=== PATIENT | male | born 1945 | race Caucasian/White ===

== ENCOUNTER 2016-11-20 23:15 | Inpatient (IN) | payer MEDICARE ==
[~2016-11-20] VITALS: Ht 165.1 cm; Wt 102.6 kg
[~2016-11-20 23:15] MED LIST: LIDO700A6 TP
--- NOTE | 2016-11-20 23:25 | ED.REPORT ---
HPI-General Illness Date of Service Nov 20, 2016 ED Provider: Shaun Manuel MD A 70 year old male with a history of CAD, hypertension and diabetes mellitus presents to the ED via EMS after a reported syncopal episode that occurred just prior to arrival. Patient admits drinking EtOH prior to the incident. The episode was reportedly witnessed by the patient's . Patient has no memory of a syncopal episode. He currently takes Aspirin, but no other anticoagulant.. Patient denies extremity numbness or weakness, head injury, neck soreness, or any other current pains. He is not a reliable historian. Nursing Notes Stated Complaint: SYNCOPE/ETOH Nursing Notes Reviewed: Yes Allergies: Coded Allergies: No Known Allergies (Unverified , 09/06/16) Scheduled Ascorbic Acid (Vitamin C) 1,000 Mg Tab.chew 1,000 MG PO DAILY Atorvastatin (Lipitor) 10 Mg Tab 10 MG PO DAILY Folic Acid (Folic Acid) 1 Mg Tablet 1 MG PO DAILY Furosemide (Furosemide) 20 Mg Tab 20 MG PO DAILY Glipizide (Glipizide) 10 Mg Tablet 10 MG PO DAILY Hydrochlorothiazide (Hydrochlorothiazide) 25 Mg Tablet 25 MG PO DAILY Lidocaine (Lidoderm) 700 Mg Adh..patch 1 PATCH TP UD Metformin (Glucophage) 1,000 Mg Tablet 1,000 MG PO BID Metoprolol Tartrate (Metoprolol Tartrate) 50 Mg Tablet 50 MG PO BID Multivitamin (Multi Vitamin Daily) 1 Each Tablet 1 EACH PO DAILY Omeprazole (Omeprazole) 20 Mg Capsule.dr 20 MG PO DAILY Miscellaneous Medications Aspirin (Aspirin) 325 Mg Tablet 325 MG PO Losartan Potassium (Losartan Potassium) 100 Mg Tablet 100 MG PO General Time Seen by MD: 23:23 Chief Complaint Other (Syncope ) Hx Obtained From: Patient Arrived By: Ambulance Sudden in Onset?: Yes Onset Occurred: Just prior to arrival Context of Onset: EtOH use Symptom Duration: 1 - 15 minutes Location: No: Head, Neck Associated with: Reports: Syncope, Denies: Headache, Numb extremities, Weak extremity Additional Notes: Pertinent Negative: Pt denies other symptoms Recent Healthcare: No recent doctor visit, No recent hospitalization Past Medical History Past Medical History Reports: previous [place] Reports: Coronary artery disease, Diabetes mellitus, Hypertension Past Surgical History Stents x3 Smoking History Unknown if Ever Smoker Social History Drug Use: Denies drug use Other Social History: , Local resident Ambulatory Status Independent Review of Systems Pt has no memory of the reported syncopal episode Full Review of Systems Constitutional: Denies: Chills, Fever Respiratory: Denies: Shortness of breath Cardiovascular: Denies: Chest pain GI: Denies: Abdominal pain, Nausea, Vomiting Musculoskeletal: Denies: Extremity pain, Neck pain Neurologic: Reports: Change LOC, Syncope, Denies: Numbness, Weakness Complete sys rev & neg: except as marked. Physical Exam Vital Signs Vital Signs Date Time Temp Pulse Resp B/P Pulse Ox O2 Delivery O2 Flow Rate FiO2 11/21/16 01:01 123 140/85 11/21/16 01:01 126 130/106 11/21/16 01:00 105 18 150/81 97 Room Air 11/20/16 23:28 36.6 106 18 151/76 96 Room Air Initial VS: Reviewed Extremities: Vascular intact, Neuro intact, No swelling, No tenderness Skin: Warm, Dry, No cyanosis Psychiatric: Mood/affect normal, Behavior normal, Normal thought content General/Constitutional: Awake, Alert Appearance / Presentation: Positive: Intoxicated (Stong Smell of EtOH ), Obese Head / Eyes: Atraumatic, Normocephalic, PERRL Eye Movement: Positive: Nystagmus present (Mild) Neck: Atraumatic, Supple, Non-tender Respiratory / Chest: Atraumatic, Breath sounds NL, Breath sounds = bilat Cardiovascular: Heart rate NL, Regular rhythm, Heart sounds NL Abdomen: Atraumatic, Soft, Non-tender ABDOMEN: Obese Interpretation & Diagnostics Lab Results Interpretation Result Diagram: 11/21/16 0504 11/21/16 0504 Test 11/20/16 23:30 Prothrombin Time 10.9sec (8.1-12.5) Prothromb Time International Ratio 1.02ratio Activated Partial Thromboplast Time 27.3sec (22.8-33.0) Total Bilirubin 0.4mg/dL (0.0-1.2) Aspartate Amino Transf (AST/SGOT) 43U/L (0-50) Alanine Aminotransferase (ALT/SGPT) 34U/L (0-44) Alkaline Phosphatase 107U/L (25-160) Pro-B-Type Natriuretic Peptide 288.4pg/mL (0-376) Total Protein 6.9g/dL (6.4-8.4) Albumin 4.1g/dL (3.4-5.0) Alcohol, Quantitative 278mg/dL (0-10) ECG Interpretation ECG Interpretation: Sinus tachycadia Rate 103 Time: 00:21 Interpreted by: ED physician X-Ray Chest Interpretation Chest Xray Interpretation: IMPRESSION: Lordotic film Azygos vein Elevated right hemidiaphragm (no change from previous) No other acute abnormalities identified Interpretation / Wet Read by: Wet read ED physician CT Head Interpretation IMPRESSION Mild atrophy and periventricular white matter changes consistent with patient's age No evidence of hemorrhage or specific acutr abnormality Study: Head CT no contrast Interpretation / Wet Read by: Interpret - Radiologist (hi) Re-Eval/Medical Decision Med Decision/Clinical Course 70-year-old with syncopal episode in the setting of significant alcohol intoxication, and apparent chronic alcohol abuse. He has an unexpected finding of a troponin which is four times the upper limit of normal. His EKG had some lateral ST sagging and changes suggestive of ischemia, which is now resolved. He is admitted for completion of rule out rule out protocol and anticipate performance evaluation prior to discharge. I would anticipate alcohol withdrawal here and CIWA protocol initiated. Time of Eval: 00:29 Patient Status: Condition improved Re-Evaluation/Progress Note: Patient is rechecked. He is informed of his lab results, X-ray results and diagnosis. All questions are addressed. Patient understands and agrees with treatment plan to admit. Consultation : Referral / Consult Name: Liz Caballero DO Consulted With: Hospitalist Call Returned at: 01:13 Java Analyst: Will see patient, Agrees with eval, Agrees with plan, Accepts admit Counseled Regarding: Diagnosis, Lab results, Need for admission Discharge & Departure Primary Impression: Syncope Syncope type: unspecified Qualified Code: R55 - Syncope and collapse Additional Impressions: Elevated troponin Alcohol intoxication Complication of substance-induced condition: with unspecified complication Qualified Code: F10.129 - Alcohol abuse with intoxication, unspecified Disposition: ADMITTED TO HOSPITAL Discharge Condition All VS Reviewed: Yes Condition: Stable Referrals: Ethan Hein MD (PCP) Scribe Attestation Portions of this note were transcribed by Mikel Wylie. I, Dr. Manuel personally performed the history, physical exam and medical decision-making; I reviewed and confirmed the accuracy of the information in the transcribed note. Signed by: Oliver Morales, 11/21/16 0100. Attending Statement As attending of record for this patient, I conducted an independent history and physical examination, and concur with the resident documentation as detailed above, and as amended. copies to: Ethan Hein MD, Christopher W MD Nov 20, 2016 23:25 MIKEL WYLIE Nov 20, 2016 23:36 No other acute abnormalities identified Interpretation / Wet Read by: Wet read ED physician CT Head Interpretation IMPRESSION Mild atrophy and periventricular white matter changes consistent with patient's age No evidence of hemorrhage or specific acutr abnormality Study: Head CT no contrast Interpretation / Wet Read by: Interpret - Radiologist (hi) Re-Eval/Medical Decision Time of Eval: 00:29 Patient Status: Condition improved Re-Evaluation/Progress Note: Patient is rechecked. He is informed of his lab results, X-ray results and diagnosis. All questions are addressed. Patient understands and agrees with treatment plan to admit. Consultation : Referral / Consult Name: Liz Caballero DO Consulted With: Hospitalist Call Returned at: 01:13 Java Analyst: Will see patient, Agrees with eval, Agrees with plan, Accepts admit Counseled Regarding: Diagnosis, Lab results, Need for admission Discharge & Departure Primary Impression: Syncope Syncope type: unspecified Qualified Code: R55 - Syncope and collapse Additional Impressions: Elevated troponin Alcohol intoxication Complication of substance-induced condition: with unspecified complication Qualified Code: F10.129 - Alcohol abuse with intoxication, unspecified Disposition: ADMITTED TO HOSPITAL Discharge Condition All VS Reviewed: Yes Condition: Stable Referrals: Ethan Hein MD (PCP) Jeannieibana Attestation Portions of this note were transcribed by Mikel Wylie. I, Dr. Manuel personally performed the history, physical exam and medical decision-making; I reviewed and confirmed the accuracy of the information in the transcribed note. Signed by: Oliver Morales, 11/21/160. copies to: Ethan Hein MD, Christopher W MD Nov 20, 2016 23:25 MIKEL WYLIE Nov 20, 2016 23:36
[2016-11-20 23:28] VITALS: BP 151/76; PULSE 106; RESP 18; O2SAT 96
[2016-11-20] MEDS ORDERED: 0.9% Sodium Chloride 1,000 ML IV ONE (23:29)
[2016-11-20 23:42] LABS: BASOPHILS % (AUTO) 0.4 % (0-3); EOSINOPHILS % (AUTO) 3.1 % (0-5); MONOCYTES % (AUTO) 8.5 % (4-12); Mean Corpuscular Hemoglobin 33.2 pg (27.0-35.0); NEUTROPHILS % (AUTO) 51.5 % (40-74); Platelet Count 142 bil/L (150-400)
[2016-11-21] VITALS (12 sets, daily range): BP systolic 130–166; BP diastolic 61–106; PULSE 79–126; RESP 16–22; O2SAT 94–98
[2016-11-21 00:02] LABS: INR 1.02 ratio
[2016-11-21 00:19] LABS: Magnesium 1.3 mg/dL (1.6-2.6)
[2016-11-21 00:21] LABS: TROPONIN T 0.041 ug/L (0.0-0.011)
[2016-11-21] MEDS ORDERED: Heparin 25K Unit/500mL 0.45 NS 25,000 UNIT in IV Premix 1 EACH IV SCH (00:30)
[2016-11-21] MEDS ORDERED: Heparin 5,000 Unit/mL Inj IVPUSH ONE (00:30)
[2016-11-21] MEDS ORDERED: Pantoprazole 4 mg/mL 10 mL Inj IVPUSH ONE (00:30)
[2016-11-21] MEDS: MeTOProlol 1 mg/mL 5 mL Inj IVPUSH SCH ×3 (01:13→02:10)
[2016-11-21] MEDS ORDERED: Multivitamin w/Vit K Inj 10 ML, Thiamine Inj 100 MG, Folic Acid Inj 1 MG, Magnesium Sul... IV ONE ×5 (01:25)
[2016-11-21] MEDS ORDERED: Potassium Chloride 20 mEq SR Tablet PO ONE (01:25)
[2016-11-21] MEDS ORDERED: 0.9% Sodium Chloride 1,000 ML IV SCH (01:43)
[2016-11-21] MEDS ORDERED: Polyethylene Glycol (PEG) 17 Gm Powder PO PRN (01:45)
[2016-11-21] MEDS ORDERED: Alum-Mag Hydrox-Simeth 30 mL Suspension PO PRN (01:45)
[2016-11-21] MEDS ORDERED: Ondansetron 2 mg/mL 2 mL Inj IVPUSH PRN (01:45)
[2016-11-21] MEDS ORDERED: Senna-Docusate 8.6-50 mg Tablet PO PRN (01:45)
[2016-11-21] MEDS ORDERED: OMEP20CA11 PO (01:52)
[2016-11-21] MEDS ORDERED: METO50TA3 PO (01:52)
[2016-11-21] MEDS ORDERED: GLIP10TA10 PO (01:52)
[2016-11-21] MEDS ORDERED: FUR20 PO (01:52)
[2016-11-21] MEDS ORDERED: METF1000 PO (01:52)
[2016-11-21] MEDS ORDERED: ASPI325T32 PO (01:52)
[2016-11-21] MEDS ORDERED: MULT-1018 PO (01:52)
[2016-11-21] MEDS ORDERED: FOLI1TAB18 PO (01:52)
[2016-11-21] MEDS ORDERED: ASCO100089 PO (01:52)
[2016-11-21] MEDS ORDERED: LOSA100T29 PO (01:52)
[2016-11-21] MEDS ORDERED: HYDR25TA4 PO (01:52)
[2016-11-21] MEDS ORDERED: ATRV10T PO (01:52)
[2016-11-21] MEDS ORDERED: Thiamine Inj 100 MG in 0.9% Sodium Chloride 100 ML IV SCH (02:40)
[2016-11-21] MEDS ORDERED: Mag Sulf 4 Gm/100 mL IV Premix (Mag < 1.6 & Creat < 2) IV ONE (03:05)
--- NOTE | 2016-11-21 03:42 | PCM.HPMED ---
Subjective Date of Service Nov 21, 2016 Primary Provider: Admitting Physician: Liz Caballero DO Primary Care Physician: Ethan Hein MD Attending Physician: Liz Caballero DO Admit Status: From the Emergency Department, [facility] Telemetry Chief Complaint: Syncope History of Present Illness: Patient is a 70 year old male with a history of CAD, hypertension and diabetes mellitus presents to the ED via EMS after a reported syncopal episode that occurred just prior to arrival. Patient admits drinking more EtOH than usual prior to the incident. Patient's heard him fall, and found him on the floor without any surroundings of things to hit. Patient has no memory of a syncopal episode. Denies sense of lightheadedness, SOB or nausea prior to fall. Patient denies headaches, vision changes, extremity numbness or weakness, head injury, neck soreness, or any other current pains. In the ED, vitals T36.6, P106, RR18, BP151/76, 96% on RA. Labs significant for troponin 0.041. Heparin ggt started and patient admitted for further work up. Review of Systems: 11 point ROS reviewed and negative otherwise noted on HPI. Allergies Coded Allergies: No Known Allergies (Unverified , 09/06/16) Home Medications Atorvastatin 10mg daily Glipizide 10mg TID Metformin 1000mg BID Vit C 1000IU Mature Multi Vit daily Losartan 100mg daiyl HCTZ 25mg daily Metoprolol 50mg BID Omeprazole 20mg daiyl ASA 325mg daily Aller-jada 10mg daily Furosemide 20mg daily Folic acid 1mg daily per 's list PMH DM2 CAD with stents HTN Obesity Surgical History R rotator cuff surgery Cervical spine surgery Family History Mother with heart issues Social History Hx Alcohol Use: Yes Alcoholic Drinks Per Day: 3-4 whiskey / day Hx Substance Use: No Hx Tobacco Use: Yes Smoking Status: Former Smoker (30 pack years) Living Arrangement: with Family (with in [place]) Exam Vital Signs Vital Sign - Last Date Time Temp Pulse Resp B/P Pulse Ox O2 Delivery O2 Flow Rate FiO2 11/21/16 02:09 36.8 90 20 141/61 94 Room Air Intake and Output 11/20/16 11/20/16 11/21/16 Cumulative From/Thru 15:00 23:00 07:00 11/20/16 23:28 - 11/20/16 23:47 Intake Total 1000 ml 1000 ml Balance 1000 ml 1000 ml Intake IV Total 1000 ml 1000 ml Exam GEN: Alert and oriented, obese male with flushed face, breath smells of alcohol HEENT: NC/AT, PERRL, EOMI, sclera anicteric, moist mucous membranes Neck:Supple with full ROM, no bruits CV: RRR, normal S1, S2, no murmurs, rubs or gallops, normal peripheral pulses Lungs: CTAB ABD: Soft, obese, mildly distended, non-tender, no fluid waves Ext: no edema, cyanosis or clubbing, good cap refill Skin: Warm, dry and intact Neuro: no focal deficits Psych: normal mood and affect Lab and Diagnostics Result Diagram: 11/20/16232911/20/162329 Assessment & Plan Patient is a 70 year old male with a history of CAD, hypertension and diabetes mellitus presents to the ED via EMS after a reported syncopal episode that occurred just prior to arrival. Patient was admitted for elevated troponin. Syncope, present on admission. Acute. - Ddx: VT, TIA/CVA, arrhythmia, aortic stenosis, hypoglycemia, autonomic insufficiency secondary to diabetes, orthostatic hypotension - CT head negative, no sign of focal weakness or murmurs on physical exam, highly suspicious for autonomic insufficiency with alcohol intoxication, cannot rule out cardiac etiologies with elevated troponin Elevated troponin, present on admission. - initial trop elevated at 0.041, will trend - Heparin ggt continued - NPO for possible catheterization in am - telemetry - stress test in am Diabetes mellitus type 2 - metformin and glipizide held - continue home dose atorvastatin - low correctional insulin protocol - A1c and lipid panel with am labs Hypertension - continue home dose losartan, HCTZ - metoprolol held Alcohol dependence, present on admission. - Banana bag given - daily thiamine - will continue to monitor closely - will order CIWA with signs or symptoms of withdrawal Hx of VT with stents - on full strength ASA and metoprolol - metoprolol held GERD - takes omeprazole PRN PRNs - Acetaminophen as needed for mild pain/fever/headache - Bowel regimen as needed - Antiemetic as needed Patient admitted under inpatient status with expected length of stay greater than 2 midnights due to severity of presenting symptoms, risk of adverse event, and complexity of treatment plan. DVT: heparin ggt GI: not indicated CODE: FULL Pain Evaluation: Adequate Pain Control GI Prophylaxis: Proton Pump Inhibitor (PRN) VTE Prophylaxis: Other (Heparin gtt) Resuscitation Status: CPR: Attempt Resuscitation Attending Statement The patient was seen and examined together with house staff on 11/20 and I agree with the history, exam and plan as outlined in the note above. Dionne Ndiaye DO Nov 21, 2016 02:27 Liz Caballero DO Nov 23, 2016 06:05
[2016-11-21] MEDS ORDERED: Pantoprazole 20 mg ER24 Tablet PO PRN (03:55)
[2016-11-21 05:32] LABS: BASOPHILS % (AUTO) 0.4 % (0-3); EOSINOPHILS % (AUTO) 2.9 % (0-5); MONOCYTES % (AUTO) 9.2 % (4-12); Mean Corpuscular Hemoglobin 32.8 pg (27.0-35.0); Mean Corpuscular Volume 94.9 fL (81-100); NEUTROPHILS % (AUTO) 55.1 % (40-74); Platelet Count 133 bil/L (150-400)
[2016-11-21 06:01] LABS: APPEARANCE,URINE CLEAR (CLEAR,HAZY); COLOR,URINE YELLOW (YELLOW); OCCULT BLOOD,URINE NEGATIVE (NEGATIVE); UROBILINOGEN,URINE NORMAL (NORMAL)
[2016-11-21 06:25] LABS: TROPONIN T 0.04 ug/L (0.0-0.011)
--- NOTE | 2016-11-21 07:57 | DRSVH ---
PROCEDURE: X-RAY CHEST ONE VIEW, PORTABLE ([id number]) INDICATIONS: syncope TECHNIQUE: One view of the chest was acquired. COMPARISON: [facility], , CHEST 2VW, 03/28/2012, 17:29. FINDINGS: Surgical changes and devices: None. Lungs and pleura: Chronic right hemidiaphragm elevation. No pleural effusions or pneumothorax. Lung s are clear. Mediastinum: Mediastinal contours appear normal. Heart size is normal. Bones and chest wall: No suspicious bony lesions. Overlying soft tissues appear unremarkable. IMPRESSION: No acute cardiopulmonary disease. Dictated by: Lyssa Hightower M.D. on 11/21/2016 at 7:56 Approved by: Lyssa Hightower M.D. on 11/21/2016 at 7:56
[2016-11-21] MEDS: Sodium Chloride LOK Flush 10 mL Syringe IVFLUSH SCH ×2 (08:03→16:30)
[2016-11-21] MEDS: Multivit-Miner-Folic Acid-Iron Tablet PO SCH (08:04)
--- NOTE | 2016-11-21 08:17 | DRSVH ---
PROCEDURE: CT BRAIN WITHOUT CONTRAST ([id number]) INDICATIONS: syncope/fall TECHNIQUE: Noncontrast 4.5 mm thick angled axial sections acquired from the foramen magnum to the vertex, with c oronal reformats. COMPARISON: None. FINDINGS: Image quality: Excellent. CSF spaces: Basal cisterns are patent. No extra-axial fluid collections. The ventricles are symmet franki in size and shape. Brain: No intracranial bleeds or masses. There is mild to moderate cerebral volume loss for age, wi th resultant ventricular and sulcal prominence. There moderate are periventricular and deep white ma tter chronic small vessel ischemic changes. There is intracranial internal carotid artery atheroscle rosis. Skull and face: Calvarium and visualized facial bones appear intact, without suspicious lesions. Sinuses: Visualized sinuses and mastoids are clear. IMPRESSION: 1. No acute intracranial abnormalities. 2. Cerebral volume loss and chronic microvascular ischemic changes. No significant discrepancy with the slot shift manager radiology preliminary report. Dictated by: Lyssa Hightower M.D. on 11/21/2016 at 8:14 Approved by: Lyssa Hightower M.D. on 11/21/2016 at 8:16
--- NOTE | 2016-11-21 13:41 | PCM.PNMED ---
Subjective Date of Service Nov 21, 2016 Subjective Patient is a 70 year old male with a history of CAD, hypertension and diabetes mellitus presents to the ED via EMS after a reported syncopal episode that occurred just prior to arrival. Patient admits drinking more EtOH than usual prior to the incident. Admitted for syncopal episode secondary to alcohol intoxication and elevated troponins. Hospital day 2. Overnight: Patient started on heparin drip. No acute events. Today: Patient comfortably sitting at bedside. He states he he had previous cardiac stents placed approximately 10 years ago at [facility]. He cannot recall the symptoms precipitating his hospitalization at that time. He currently denies any chest pain, palpitations, diaphoresis, nausea, vomiting, or abdominal pain. Patient states he drinks approximately 6 shots of whiskey daily. He denies history of withdrawal or seizures. He states he can go 2-3 days without a drink without withdrawal symptoms but has not done so in the last 2 weeks. Discussed with patient her plan to proceed with echocardiogram today and heparin drip for 24 hours. We also discussed using Librium for alcohol withdrawal. Patient at this time unlikely to sustain from alcohol once returning home. Further discussion tomorrow. Remaining review of systems negative Exam Vital Signs Vital Sign - Last Date Time Temp Pulse Resp B/P Pulse Ox O2 Delivery O2 Flow Rate FiO2 11/21/16 02:43 91 11/21/16 02:32 36.9 20 149/76 96 Room Air Intake and Output 11/20/16 11/20/16 11/21/16 Cumulative From/Thru 15:00 23:00 07:00 11/20/16 23:28 - 11/21/16 06:00 Intake Total 1903 ml 1903 ml Balance 1903 ml 1903 ml Intake Oral 0 ml 0 ml IV Total 1903 ml 1903 ml # Voids 1 1 Exam General: No acute distress, obese male, appropriately interactive HEENT: Normocephalic, atraumatic. External ears without defect. Pupils equal, round, and reactive to light and accommodation. Anicteric sclerae, moist conjunctivae, and no lid lag. Neck: Supple with full range of motion. No jugular venous distension. Cardiovascular: Regular rate and rhythm with no murmurs, rubs, or gallops appreciated Pulmonary: Clear to auscultation bilaterally with no crackles, wheezes, or rhonchi. Normal respiratory effort with no use of accessory muscles. Abdomen: Bowel tones present. Soft, nontender, nondistended. Extremities: Trace tibial edema. No clubbing or cyanosis. Skin: Normal temperature, turgor, and texture; no rash, ulcers, or subcutaneous nodules appreciated. Neurological: Cranial nerves grossly intact. Psychiatric: Normal mood and affect. Alert and oriented to person, place, and time. Lab and Diagnostics Result Diagram: 11/21/16 0504 11/21/16 0504 X-Rays, CTs and MRIs CT BRAIN WITHOUT CONTRAST IMPRESSION: 1. No acute intracranial abnormalities. 2. Cerebral volume loss and chronic microvascular ischemic changes. No significant discrepancy with the welding machine operator resistance radiology preliminary report. Dictated by: Lyssa Hightower M.D. on 11/21/2016 at 8:14 Approved by: Lyssa Hightower M.D. on 11/21/2016 at 8:16 X-RAY CHEST ONE VIEW, PORTABLE IMPRESSION: No acute cardiopulmonary disease. Dictated by: Lyssa Hightower M.D. on 11/21/2016 at 7:56 Approved by: Lyssa Hightower M.D. on 11/21/2016 at 7:56 Assessment & Plan Patient is a 70 year old male with a history of CAD, hypertension and diabetes mellitus presents to the ED via EMS after a reported syncopal episode that occurred just prior to arrival. Patient admits drinking more EtOH than usual prior to the incident. Admitted for syncopal episode secondary to alcohol intoxication and elevated troponins. Hospital day 2. 1. Syncopal episode, present on admission. Active. - Etiology likely secondary to alcohol intoxication. Cannot exclude cardiac causes due to elevated troponin. - CT head negative for acute process. - We will reevaluate orthostatics today. - Echocardiogram planned for today. 2. Elevated troponin of unknown significance, present on admission. Active. - Initial troponin elevated at 0.041. Subsequent troponins 0.041, 0.046, and 0.043. - No ST changes on EKG. Patient asymptomatic. - Heparin ggt continued for 24 hours per cardiology. - Aspirin 81 mg daily. - Atorvastatin 40 mg nightly. - Metoprolol tartrate 50 mg twice a day. - Nitroglycerin and morphine as needed. Patient has not had any chest pain. - Echocardiogram planned for today. - Cardiology consulted. Appreciate time and expertise. 3. Diabetes mellitus type 2, present on admission. Chronic. - Metformin and glipizide held. - Low correctional insulin protocol. - Hemoglobin A1c pending. 4. Hypertension, present on admission. Chronic. - Metoprolol tartrate 50 mg twice a day. - Furosemide 20 mg daily. - Hydrochlorothiazide 25 mg daily. - Losartan 100 mg daily. 5. Alcohol dependence, present on admission. Chronic. - Patient states he drinks approximately 6 shots and was keep her night. - No history of delirium tremens. - Alcohol level 278. Will monitor for signs of withdrawal. - Banana bag given in the ED. - Thiamine 100 mg daily. - We will consider starting patient on Librium if he begins to develop withdrawal symptoms. - Counseled patient on alcohol cessation. 6. Coronary artery disease, present on admission. Chronic. - Medications as above. - Stent placements approximately 10 years ago occurred at [facility]. Records have been requested. 7. GERD, on admission. Chronic. - Pantoprazole 20 mg daily. - Acetaminophen as needed for mild pain/fever/headache - Bowel regimen as needed - Antiemetic as needed Disposition: Patient will discharge home. Discharge pending cardiac workup. Alcohol cessation resources should be provided prior to discharge. GI Prophylaxis: Proton Pump Inhibitor (PRN) VTE Prophylaxis: Other (Heparin gtt) VTE Mechanical Devices: Intermittant Pneumatic CD Resuscitation Status: CPR: Attempt Resuscitation Attending Statement The patient was seen and examined together with Dr. Walsh on 11/21/2016 and I agree with the history, exam and plan as outlined in the note above. . LYRIC WALSH DO Nov 21, 2016 07:22 Jeb Godwin MD Nov 21, 2016 15:04
--- NOTE | 2016-11-21 13:54 | CONS ---
[address] [address] CONSULTATION REPORT PATIENT: JENNYFER FLANAGAN : 1945 MR#: [id number] ADMIT: 11/21/2016 JOB ID: [id number] DATE OF SERVICE: 11/21/2016 CARDIOLOGY CONSULTATION: REASON FOR CONSULT: For the evaluation of syncope. CHIEF COMPLAINT: Passed out. PRESENT HISTORY: This 70-year-old pleasant male who has a history of CAD status post stent to the mid RCA in 2000 as well as 2001 at [facility], with [employer]tr[employer] 3 x 15 as well as 3.5 x 15 mm stent, history of AL in remote past, essential hypertension, hyperlipidemia, diabetes mellitus, excessive alcohol use, got admitted because of above-mentioned chief complaint. According to the patient's yesterday they had dinner. He had four alcoholic drinks with whiskey. Then he went to his room to sleep. His was still in the kitchen. She heard a fall. When she went over there, she found the patient laying on the floor with snoring. He was breathing. He did not get injured. She called EMS and the patient was brought to the hospital. According to the patient's , the patient was unconscious about 15 minutes. However, he was breathing. The patient does not remember what happened to him. He did not have any preceding chest pain or shortness of breath or lightheadedness or diplopia or extremity weakness. No tongue biting. No fecal or urinal incontinence. The patient has history of excessive alcohol use. He drinks every day. Denies any withdrawal symptoms. According to the , he was not hypoglycemic at that time. In the hospital the patient had serial troponins which were abnormal. Hence Cardiology consult was sought. At present, he is lying down flat. He is not having any chest pain or shortness of breath or new cardiovascular symptoms. He also has a history of sleep apnea and uses CPAP regularly. He has not seen toy designer from the last many years. No recent cardiac workup. PAST MEDICAL HISTORY: History of CAD and AL, RCA stent in remote past with underlying type 2 diabetes mellitus, obesity, hypertension, hyperlipidemia, obstructive sleep apnea. PAST SURGICAL HISTORY: As stated above as well as rotator cuff surgery, cervical spine surgery. FAMILY HISTORY: Positive for coronary artery disease. ALLERGIES: The patient denies any allergies. HOME MEDICATIONS: 1. Atorvastatin 10 mg daily. 2. Glipizide 10 mg t.i.d. 3. Metformin 100 mg b.i.d. 4. Vitamin C 1000 units. 5. Losartan 100 mg daily. 6. Hydrochlorothiazide 25 mg daily. 7. Metoprolol 50 mg b.i.d. 8. Omeprazole 20 mg daily. 9. Aspirin 325 mg daily. 10. Lasix 20 mg daily. 11. Folic acid 1 mg daily. 12. Allergy tablet . SOCIAL HISTORY: Alcohol history as stated above plus he used to smoke and quit smoking a couple of years ago. He has history of 30 packs a year. REVIEW OF SYSTEMS: Eleven point review of systems reviewed and negative. Otherwise noted in the HPI. PHYSICAL EXAMINATION: Blood pressure 166/81, heart rate 94, respiratory rate 16, oxygen saturation 95%. Hence, the patient is obese. Neck is short. No apparent JVP or carotid bruit. Chest: No obvious crepitation or rhonchi. CVS: S1, S2 normal. No S3, no S4. I do not appreciate any significant murmur. Abdomen obese. No obvious pulsatile mass felt. No obvious hepatosplenomegaly. Extremities: Mild pedal edema. Vascular: No evidence of critical limb ischemia. JACQUARD PLATE MAKER: Alert, oriented to time, place and person. No obvious focal motor or sensory deficit. EKG revealed sinus rhythm without any significant ST-T changes. QTc 473 msec. TX interval 172 msec. LABORATORY: WBC 5.1, hemoglobin 11.6, hematocrit 33.6, platelets 133. Alcohol level 278. Sodium 145, potassium 4.4, BUN 18, creatinine 0.89, magnesium 2.7. Troponin T 0.04, 1.04, 0.046 and 0.043. Total bilirubin, AST, ALT normal. Initial magnesium was 1.3 and potassium 3.2. Triglyceride 312, total cholesterol 171, LDL 73, HDL 35. INR 1.02. CT head: No acute intracranial abnormalities. Chronic microvascular ischemic changes. X-ray chest did not reveal any acute pathology. ASSESSMENT AND PLAN: 1. Syncopal episode in the setting of excessive alcohol use and high alcohol level in the blood. 2. Elevated troponin with known history of coronary artery disease status post RCA stenting in remote past. 3. With underlying essential hypertension, mixed hyperlipidemia, possibility of metabolic syndrome and other problems as stated above. Clinically he appears compensated. He has abnormal troponin but does not have typical symptoms suggestive of acute coronary syndrome. EKG: I do not see any significant ST-T changes. His troponin elevation could be due to excessive alcohol and alcohol toxicity. He had prolonged syncope lasted about 10-15 minutes which is unlikely due to cardiac arrhythmias. No seizure type of activity. At this point of time, we will get echocardiogram to make sure there is no significant structural heart disease. If there is no significant structural heart disease, then we will recommend a perfusion study for CAD risk stratification. Continue telemetry monitoring. I will recommend checking him for orthostatic as well. His electrolytes has replaced. Close watch for alcohol withdrawal phenomena. Discussed the plan with the patient and family members including . They agreed and concur. Further plan will be based on the result of above-mentioned diagnostic tests. Thanks for the cardiology consult. Total time spent at least 70 minutes.
[2016-11-21] MEDS: Heparin Protocol Boluses IVPUSH PRN (14:00)
--- NOTE | 2016-11-21 15:16 | NUR ---
Social Work: Initial Assessment D: Per EMR review, pt is a 70 year old male admitted for syncope, elevated troponin. Pt is AARP Medicare Complete HMO with [employer] [facility] insurance and 80% service connection. PCP Is Ethan Hein MD. NOK Is Monika Espinoza, , . Advanced directives not completed yet- information provided to pt and by RANCH HAND SUPERVISOR. RA score not entered at this time. RANCH HAND SUPERVISOR met with pt at bedside. Sw role explained. See initial assessment. Pt lives at home in [place] with his spouse. He is I at baseline, uses no DME, has a flight of internal stairs but has had no trouble ambulating them/also has elevator in home. no history of HH or skilled rehab. Pt has been ambulating I during admission. Both he and deny any home needs at discharge and state spouse will transport home. EMR reviewed; no sw needs identified at this time. A: Pt who is I at baseline. P: Anticipate pt to discharge home via POV once medically stable; RANCH HAND SUPERVISOR to continue to follow. LV Esteban Addendum: 11/21/16 at 1520 by ROBERTO MCLEAN Amended: Links added.
--- NOTE | 2016-11-21 16:20 | DRSVH ---
[facility] [address] [place] [address] Echocardiogram Report Name: JENNYFER FLANAGAN Study Date: 11/21/2016 Height: 65 in Hospital Exam Location: [facility] Weight: 229 lb Gender: Male BSA: 2.1 m2 : 1945 Age: 70 yrs BP: 149/81 mmHg Reason For Study: Elevated Troponin Ordering Physician: Performed By: Alma Machado Referring Physician: Gina Hein Interpretation Summary The left ventricle is normal in size. The left ventricle is hyperdynamic. The ejection fraction is estimated to be 70-75%. There is no echo evidence for significant left ventricular outflow tract obstruction. The right ventricle is normal in size and function. No significant valvular pathology seen. The ascending aorta is mildly enlarged. Procedure: A two-dimensional transthoracic echocardiogram with color flow and Doppler was performed. The study quality was technically adequate. There is no prior echocardiogram noted for this patient. The patient had occasional PVCs during the exam. The patient was in sinus tachycardia with heart rates between 91-112 bpm during the exam. Left Ventricle: The left ventricle is normal in size. Left ventricular wall thickness is at the upper limits of normal. There is no echo evidence for significant left ventricular outflow tract obstruction. There is no thrombus. The ejection fraction is estimated to be 70-75%. The left ventricle is hyperdynamic. There are no focal wall motion abnormalities. The E/E' ratio is abnormal. Right Ventricle: The right ventricle is normal in size and function. Atria: Both atria are mildly dilated. The interatrial septum is intact with no evidence for an atrial septal defect. There is no Doppler evidence for an interatrial shunt. The thickening of interatrial septum suggests lipomatous hypertrophy. Mitral Valve: The mitral valve leaflets are slightly calcified. There is no mitral regurgitation noted. Aortic Valve: The aortic valve is trileaflet. The aortic valve opens well. There is no aortic valve stenosis. No aortic regurgitation is present. Tricuspid Valve: The tricuspid valve is normal. Pulmonary artery pressures cannot be estimated because of the lack of a measurable TR jet velocity. There is trace tricuspid regurgitation. Pulmonic Valve: The pulmonic valve is not well seen, but is grossly normal. There is no pulmonic valvular regurgitation. Great Vessels: The aortic root is normal size. The ascending aorta is mildly enlarged. The aortic arch is normal in size. The IVC is dilated (diameter is greater than 2.1 cm) yet it collapses greater than 50% with a sniff. This suggests a right atrial pressure of 8 mm Hg. Pericardium/ Pleura There is no pericardial effusion. MMode/2D Measurements & Calculations LVIDd: 5.1 cm LA dimension: 4.3 cm RA long axis LVOT diam: 2.3 cm LVIDs: 4.0 cm Ao root diam FS: 21.2 % LA A2 area: 26.0 cm RA area EPSS: 0.47 cm LA A4 area: 23.7 cm asc Aorta Diam IVSd: 1.1 cm LA length (vol) : 22.1 cm LVPWd: 1.0 cm RA vol Ao Arch Diam (Prox LA vol: 78.6 ml : 72.3 ml Trans): 2.9 cm LA vol index RA : 34.5 mm2 IVC diam: 2.3 cm LV kamara. diameter/BSA LV sys. diameter/BSA RVD1 (basal) (cm/m^2): 2.4 (cm/m^2): 1.9 Doppler Measurements & Calculations Ao V2 max MV E max emmanuel MV E/A: 1.1 PA V2 max : 176.6 cm/sec : 107.2 cm/sec Med Peak E' Emmanuel : 97.6 cm/sec Ao max PG MV A max emmanuel PA mean PG : 12.5 mmHg : 101.7 cm/sec E/E' med: 12.8 Ao mean PG MV P1/2t: 47.7 msec Lat Peak E' Emmanuel PA Accel Time : 0.06 sec LVOT Max Emmanuel E/E' lat: 10.2 : 128.4 cm/sec E/e' average: 11.5 Pulm A Revs Dur OJ(I,D): 3.4 cm sev ratio MV A dur: 0.12 sec MV dec time MV P1/2t max emmanuel Ao V2 mean LV V1 max PG : 0.16 sec : 117.9 cm/sec MVA(P1/2t): 4.6 cm2 Ao V2 VTI: 32.7 cm LV V1 VTI OJ(V,D): 3.1 cm2 : 26.3 cm PA V2 mean OJ indexed to BSA Pulm A Revs Dur - MV A : 65.0 cm/sec (cm^2/m^2): 1.6 Dur: 0.00 msec Reading Physician:PM
--- NOTE | 2016-11-21 18:12 | NUR ---
Activity Patient A&Ox3. VSS. Independent in the room. Patient denies pain/discomfort. Denies lightheadedness/dizziness. CIWA score was 0.
--- NOTE | 2016-11-21 22:22 | NUR ---
Activity Pt able to move in room independently. Pt able to reposition self in bed without assistance. Polymer Scientist encouraged pt to move positions frequently to prevent excessive pressure to any certain area. Otherwise, pt has no concerns. No notable issues with respirations or with cardiac status. Pt asleep at 2200, on home CPAP.
[2016-11-22] MEDS: Sodium Chloride LOK Flush 10 mL Syringe IVFLUSH SCH ×2 (00:30→08:50)
[2016-11-22 02:55] LABS: Mean Corpuscular Hemoglobin 32.5 pg (27.0-35.0); Mean Corpuscular Volume 95.1 fL (81-100)
[2016-11-22 02:58] VITALS: BP 166/82; PULSE 74; RESP 20; O2SAT 96
[2016-11-22] MEDS ORDERED: Glucose 40% Oral Gel 15 Gm Tube PO PRN (03:25)
[2016-11-22 03:50] LABS: Magnesium 2.2 mg/dL (1.6-2.6)
[2016-11-22 03:54] LABS: TROPONIN T 0.033 ug/L (0.0-0.011)
[2016-11-22] MEDS: Insulin LISPRO 300 Unit/3 mL Inj SUBQ SCH ×2 (08:00→12:42)
[2016-11-22 08:39] VITALS: BP 181/82; PULSE 83; RESP 20; O2SAT 95
[2016-11-22] MEDS: Multivit-Miner-Folic Acid-Iron Tablet PO SCH (08:50)
[2016-11-22] MEDS: Heparin Protocol Boluses IVPUSH PRN (08:52)
[2016-11-22 09:58] VITALS: PULSE 80
--- NOTE | 2016-11-22 10:04 | NUR ---
Off Unit Patient off unit for Cardiac stress test.
[2016-11-22 13:02] VITALS: BP 159/71; PULSE 99; RESP 20; O2SAT 97
[2016-11-22] MEDS ORDERED: ATOR40TA69 PO (14:04)
[2016-11-22] MEDS ORDERED: METO50TA3 PO (14:04)
[2016-11-22] MEDS ORDERED: Thiamine PO (14:04)
[2016-11-22] MEDS ORDERED: ASPI81TA3 PO (14:04)
--- NOTE | 2016-11-22 14:07 | PCM.DIMED ---
Shannon Patiño DO 11/22/16 1407: Discharge Instructions Date of Service Nov 22, 2016 Dates of Hospitalization Nov 21, 2016 at 01:20 Discharge Diagnosis Discharge Diagnosis 1. Syncopal episode, present on admission. Active 2. Elevated troponin of unknown significance, present on admission. Active. 3. Diabetes mellitus type 2, present on admission. Chronic. 4. Hypertension, present on admission. Chronic. 5. Alcohol dependence, present on admission. Chronic. 6. Coronary artery disease, present on admission. Chronic. 7. GERD, on admission. Chronic. Medication Instructions Some of your medications have been increased. Please make sure you are taking the correct doses when you are discharged. Diet Heart Healthy Activity Limited until seen by PCP Call your provider Chest pain Patient Instructions Please follow up with cardiology when you return from vacation with Dr. Naylor. Please follow up with your PCP in 1-2 weeks, or before you leave for vacation. Please limit your alcohol intake to 2 measured shots per day. Follow-up Provider: Ethan Hein MD Provider: Zuleika Naylor MD Follow-up in: 4 weeks Jeb Godwin MD 11/27/16 1610: Discharge Instructions Attending's Statement The patient was seen and examined together with Dr. Patiño on 11/22/2016 and I agree with the history, exam and plan as outlined in the note above. . Shannon Patiño DO Nov 22, 2016 14:07 Jeb Godwin MD Nov 27, 2016 16:10
--- NOTE | 2016-11-22 15:01 | NUR ---
Discharge Cardiology reviewed stress test results and agreed patient stable for discharge. Patient denies pain/discomfort and has not had any further episodes of dizziness. VSS. Discharge instructions and paper rx printed and reviewed verbally with patient and his . All patient questions answered. IV's DC'd intact. Patient ambulated off unit with all personal belongings accompanied by his and discharged home via personal vehicle.
--- NOTE | 2016-11-22 16:01 | PROG NOTE ---
[address] [address] PROGRESS NOTE PATIENT: JENNYFER FLANAGAN : 1945 MR#: [id number] ADMIT: 11/21/2016 JOB ID: [id number] DATE: 11/22/2016 SUBJECTIVE: The patient is feeling much better. No recurrence of syncope. No chest pain or active shortness of breath or PND, orthopnea or alcoholic withdrawal symptoms. OBJECTIVE: Blood pressure 159/71, heart rate in the 80s, respiratory rate 20, oxygen saturation room air 97%. Neck: No apparent JVP. Chest: No obvious crepitation or rhonchi. CVS: S1, S2 normal. No S3, no S4. Abdomen obese. Extremities: No new changes. Vascular: No evidence of critical limb ischemia. Telemetry: Sinus rhythm with some PVCs. Occasional ventricular couplets. No obvious sustained ventricular tachycardia. LABORATORIES: Sodium 141, potassium 4.8, BUN 13, creatinine 0.82. Magnesium 2.2. Hemoglobin 11.9, platelets 122. Echocardiogram yesterday revealed LV ejection fraction 70% to 75%, normal right ventricular function, no significant valvular pathology. The patient underwent pharmacological perfusion study today which revealed small mildly decreased perfusion of basal inferolateral wall. Preserved LV function. No significant ischemic changes on EKG or significant arrhythmias. ASSESSMENT AND PLAN: 1. Syncopal episode in the setting of alcohol intoxication, which was prolonged. The patient also had abnormal troponin in the setting of alcohol intoxication. On 2D echo LV ejection fraction 70% to 75%. No significant structural heart disease. On perfusion scan, there is no significant perfusion defect other than basal inferolateral defect which could be previous infarction. However, the patient did not have any resting study so cannot rule out small ischemia. However, is not a high risk perfusion scan. The patient is not having any chest pain or shortness of breath. Alcohol in moderation discussed. At this point of time, will recommend medical management and risk factor modification. He is on aspirin, beta kevin, ARB and high intensity statin. We will recommend metoprolol tartrate to 75 mg twice a day from 50 mg twice a day. Follow up with me in Cardiology Clinic in couple of weeks. Discussed the plan with the patient and hospitalist team. They agreed and concur. At this point of time, Cardiology Service will sign off. Total time spent about 40 minutes.
--- NOTE | 2016-11-22 16:04 | DRSVH ---
PROCEDURE: EITHER REST OR STRESS ONLY. Pharmacological stress myocardial perfusion SPECT with gated imaging and ejection fraction. RADIOPHARMACEUTICAL: 20.4 mCi of Tc-99m tetrofosmin intravenously at peak pharmacologic stress. INDICATIONS: CAD, elevated troponin. TECHNIQUE: Radiopharmaceutical was injected at peak stress test. SPECT images were obtained. SPECT myocardial perfusion images were displayed in short axis, horizontal long axis, and vertical long ax is views. Gated images were reviewed using [employer] software. COMPARISON: None. CARDIAC STRESS: A pharmacologic stress test was performed under the supervision of attending staff u sing an infusion of Lexiscan as per protocol. Hemodynamic Data: There is normal blood pressure and heart rate response to pharmacologic stress. Symptoms: The patient denied anginal chest pain during drug infusion. Aminophylline: No aminophylline was given. EKG: Baseline rhythm was sinus. No diagnostic EKG changes of ischemia. There were occasional PVCs and rare ventricular couplets. No ventricular tachycardia is seen. FINDINGS: Raw Data: There appears to be adequate myocardial uptake. There was increased subdiaphragmatic acti vity. Left Ventricular Function: Stress LV ejection fraction 63%. Stress LV end diastolic volume 84 mL. I do not see any significant wall motion abnormalities. Myocardial Perfusion: Stress supine and stress prone images were compared to each other. It appears that the patient has small, mildly decreased perfusion of the basal inferolateral wall. IMPRESSION: The patient has small, mildly decreased perfusion of the basal inferolateral wall. The patient has a history of right coronary artery intervention and acute coronary syndrome in the past. In the rest of the areas I do not see any significant perfusion defects. Overall left ventricular f unction is preserved. No ischemic electrocardiogram changes. There was no significant sustained arr hythmia seen during the electrocardiogram. There is a possibility of small basal inferolateral infar ction but, in the absence of a resting study, cannot rule out small basal inferolateral ischemia; how ever, overall ischemic burden or infarction burden is not significant. The patient had syncope in th e setting of alcohol intoxication. As far as perfusion scan is concerned, this is not a high-risk pe rfusion scan. Dictated by: Zuleika Naylor M.D. on 11/22/2016 at 12:50 Transcribed by: MICHAEL on 11/22/2016 at 19:04 Approved by: Zuleika Naylor M.D. on 11/24/2016 at 13:22
--- NOTE | 2016-11-23 15:53 | PCM.DC.MED ---
Discharge Summary Date of Service Nov 23, 2016 Dates of Hospitalization Date of Hospital Admission Nov 21, 2016 at 01:20 Date of Discharge: Nov 22, 2016 Providers: Admitting Physician: Liz Caballero DO Primary Care Physician: Ethan Hein MD Attending Physician: Liz Caballero DO Diagnosis at Time of Discharge Diagnosis at Time of Discharge 1. Syncopal episode, present on admission. Active 2. Elevated troponin of unknown significance, present on admission. Active. 3. Diabetes mellitus type 2, present on admission. Chronic. 4. Hypertension, present on admission. Chronic. 5. Alcohol dependence, present on admission. Chronic. 6. Coronary artery disease, present on admission. Chronic. 7. GERD, on admission. Chronic. Consultations Cardiology Procedures XRay, CTs & MRIs CT BRAIN WITHOUT CONTRAST IMPRESSION: 1. No acute intracranial abnormalities. 2. Cerebral volume loss and chronic microvascular ischemic changes. No significant discrepancy with the scene shifter radiology preliminary report. Dictated by: Lysas Hightower M.D. on 11/21/2016 at 8:14 Approved by: Lyssa Hightower M.D. on 11/21/2016 at 8:16 X-RAY CHEST ONE VIEW, PORTABLE IMPRESSION: No acute cardiopulmonary disease. Dictated by: Lyssa Hightower M.D. on 11/21/2016 at 7:56 Approved by: Lyssa Hightower M.D. on 11/21/2016 at 7:[address] Ndiaye's H and P: "Patient is a 70 year old male with a history of CAD, hypertension and diabetes mellitus presents to the ED via EMS after a reported syncopal episode that occurred just prior to arrival. Patient admits drinking more EtOH than usual prior to the incident. Patient's heard him fall, and found him on the floor without any surroundings of things to hit. Patient has no memory of a syncopal episode. Denies sense of lightheadedness, SOB or nausea prior to fall. Patient denies headaches, vision changes, extremity numbness or weakness, head injury, neck soreness, or any other current pains. In the ED, vitals T36.6, P106, RR18, BP151/76, 96% on RA. Labs significant for troponin 0.041. Heparin ggt started and patient admitted for further work up." Hospital Course Patient is a 70 year old male with a history of CAD, hypertension and diabetes mellitus presents to the ED via EMS after a reported syncopal episode that occurred just prior to arrival. Patient admits drinking more EtOH than usual prior to the incident. Admitted for syncopal episode secondary to alcohol intoxication and elevated troponins. Hospital day 3. 1. Syncopal episode, present on admission. Active. - Etiology likely secondary to alcohol intoxication. Cannot exclude cardiac causes due to elevated troponin. - CT head negative for acute process. - Echocardiogram unremarkable. Stress test negative. 2. Elevated troponin of unknown significance, present on admission. Active. - Initial troponin elevated at 0.041. Subsequent troponins 0.041, 0.046, and 0.043. - No ST changes on EKG. Patient asymptomatic. - Heparin ggt continued for 24 hours per cardiology. - Aspirin 81 mg daily. - Atorvastatin 40 mg nightly. - Metoprolol tartrate 50 mg twice a day. - Nitroglycerin and morphine as needed. Patient has not had any chest pain. - Cardiology consulted. Appreciate time and expertise. 3. Diabetes mellitus type 2, present on admission. Chronic. - Metformin and glipizide held. - Low correctional insulin protocol. - Hemoglobin A1c pending. 4. Hypertension, present on admission. Chronic. - Metoprolol tartrate 50 mg twice a day. - Furosemide 20 mg daily. - Hydrochlorothiazide 25 mg daily. - Losartan 100 mg daily. 5. Alcohol dependence, present on admission. Chronic. - Patient states he drinks approximately 6 shots and was keep her night. - No history of delirium tremens. - Alcohol level 278. Monitored for signs of withdrawal. - Banana bag given in the ED. - Thiamine 100 mg daily. - Counseled patient on alcohol cessation. 6. Coronary artery disease, present on admission. Chronic. - Medications as above. - Stent placements approximately 10 years ago occurred at [facility]. Records have been requested. 7. GERD, on admission. Chronic. - Pantoprazole 20 mg daily. - Acetaminophen as needed for mild pain/fever/headache - Bowel regimen as needed - Antiemetic as needed Exam Vital Signs (Last) Date Time Temp Pulse Resp B/P Pulse Ox O2 Delivery O2 Flow Rate FiO2 11/22/16 13:02 37.0 99 20 159/71 97 Room Air Exam General: No acute distress, obese male, appropriately interactive HEENT: Normocephalic, atraumatic. External ears without defect. Pupils equal, round, and reactive to light and accommodation. Anicteric sclerae, moist conjunctivae, and no lid lag. Neck: Supple with full range of motion. No jugular venous distension. Cardiovascular: Regular rate and rhythm with no murmurs, rubs, or gallops appreciated Pulmonary: Clear to auscultation bilaterally with no crackles, wheezes, or rhonchi. Normal respiratory effort with no use of accessory muscles. Abdomen: Bowel tones present. Soft, nontender, nondistended. Extremities: Trace tibial edema. No clubbing or cyanosis. Skin: Normal temperature, turgor, and texture; no rash, ulcers, or subcutaneous nodules appreciated. Neurological: Cranial nerves grossly intact. Psychiatric: Normal mood and affect. Alert and oriented to person, place, and time. Test 11/20/16 23:30 11/21/16 03:30 11/21/16 05:04 11/22/16 02:43 Prothrombin Time 10.9sec (8.1-12.5) Prothromb Time International Ratio 1.02ratio Total Bilirubin 0.4mg/dL (0.0-1.2) Aspartate Amino Transf (AST/SGOT) 43U/L (0-50) Alanine Aminotransferase (ALT/SGPT) 34U/L (0-44) Alkaline Phosphatase 107U/L (25-160) Pro-B-Type Natriuretic Peptide 288.4pg/mL (0-376) Total Protein 6.9g/dL (6.4-8.4) Albumin 4.1g/dL (3.4-5.0) Alcohol, Quantitative 278mg/dL (0-10) Urine Color Yellow (YELLOW) Urine Appearance Clear (CLEAR,HAZY) Urine pH 6.0 (5.0-8.0) Urine Specific [place] 1.005 (1.003-1.035) Urine Protein Negativemg/dL (NEG,TRACE) Urine Glucose (UA) 250mg/dL (NEGATIVE) Urine Ketones Negativemg/dL (NEGATIVE) Urine Occult Blood Negative (NEGATIVE) Urine Nitrite Negative (NEGATIVE) Urine Bilirubin Negative (NEGATIVE) Urine Urobilinogen Normalmg/dL (NORMAL) Urine Leukocyte Esterase Negative (NEGATIVE) Urine RBC 0-2/hpf (0-2) Urine WBC 0-5/hpf (0-5) Urine Epithelial Cells Occasional/hpf (NONE-MOD) Urine Crystals None seen (NONE SEEN) Urine Bacteria None/hpf (NONE-FEW) Urine Hyaline Casts None/lpf (NONE) Urine Granular Casts None seen (NONE SEEN) Urine Waxy Casts None seen (NONE SEEN) Urine Red Blood Cell Casts None seen (NONE SEEN) Urine White Blood Cell Casts None seen (NONE SEEN) Urine Mucus None seen (None Seen) Urine Trichomonas None seen (NONE SEEN) Urine Yeast None (NONE SEEN) Urine Culture Reflexed Not indicated Neutrophils (%) (Auto) 55.1% (40-74) Lymphocytes (%) (Auto) 31.8% (14-46) Monocytes (%) (Auto) 9.2% (4-12) Eosinophils (%) (Auto) 2.9% (0-5) Basophils (%) (Auto) 0.4% (0-3) Hemoglobin A1c 7.2% (4.8-5.6) Triglycerides Level 312mg/dL (0-149) Cholesterol Level 171mg/dL (100-199) LDL Cholesterol, Calculated 73.600mg/dL (0-99) VLDL Cholesterol 62.400mg/dL HDL Cholesterol 35mg/dL (>39) Cholesterol/HDL Ratio 4.89 (0.0-4.4) White Blood Count 5.7th/mm3 (3.8-10.1) Red Blood Count 3.66mil/mm3 (4.40-5.80) Hemoglobin 11.9g/dL (13.8-17.2) Hematocrit 34.8% (41.0-50.0) Mean Corpuscular Volume 95.1fL (81-100) Mean Corpuscular Hemoglobin 32.5pg (27.0-35.0) Mean Corpuscular Hemoglobin Concent 34.2% (32.0-37.0) Red Cell Distribution Width 14.3% (12.3-15.4) Platelet Count 122bil/L (150-400) Sodium Level 141mEq/L (134-144) Potassium Level 4.8mEq/L (3.5-5.2) Chloride Level 105mEq/L (97-108) Carbon Dioxide Level 21mmol/L (18-29) Blood Urea Nitrogen 13mg/dL (8-27) Creatinine 0.82mg/dL (0.76-1.27) Estimat Glomerular Filtration Rate 98mL/min (>59) Glucose Level 193mg/dL (60-99) Calcium Level 9.8mg/dL (8.5-10.1) Magnesium Level 2.2mg/dL (1.6-2.6) Troponin T 0.033ug/L (0.0-0.011) Test 11/22/16 13:00 Activated Partial Thromboplast Time 49.0sec (22.8-33.0) Discharge Medications Discharge Medications ([Thiamine]) 100 MG TABLET 100 MG PO DAILY Prescribed by: REYNA PATIÑO DO Ascorbic Acid (Vitamin C) 1,000 Mg Tab.chew 1,000 MG PO DAILY (Reported) Aspirin Chew (Aspirin Chew) 81 Mg Chew 81 MG PO DAILY Prescribed by: REYNA PATIÑO DO Atorvastatin (Lipitor) 10 Mg Tab 10 MG PO DAILY (Reported) Atorvastatin Calcium (Atorvastatin Calcium) 40 Mg Tablet 40 MG PO HS Prescribed by: REYNA PATIÑO DO Folic Acid (Folic Acid) 1 Mg Tablet 1 MG PO DAILY (Reported) Furosemide (Furosemide) 20 Mg Tab 20 MG PO DAILY (Reported) Glipizide (Glipizide) 10 Mg Tablet 10 MG PO DAILY (Reported) Hydrochlorothiazide (Hydrochlorothiazide) 25 Mg Tablet 25 MG PO DAILY (Reported ) Metformin (Glucophage) 1,000 Mg Tablet 1,000 MG PO BID (Reported) Metoprolol Tartrate (Metoprolol Tartrate) 50 Mg Tablet 50 MG PO BID (Reported) Metoprolol Tartrate (Metoprolol Tartrate) 50 Mg Tablet 75 MG PO BID Prescribed by: REYNA PATIÑO DO Multivitamin (Multi Vitamin Daily) 1 Each Tablet 1 EACH PO DAILY (Reported) Omeprazole (Omeprazole) 20 Mg Capsule.dr 20 MG PO DAILY (Reported) Miscellaneous Medications Aspirin (Aspirin) 325 Mg Tablet 325 MG PO (Reported) Losartan Potassium (Losartan Potassium) 100 Mg Tablet 100 MG PO (Reported) Additional med instructions Some of your medications have been increased. Please make sure you are taking the correct doses when you are discharged. Followup Plan Discharge Diet: Heart Healthy Discharge Activity: Limited until seen by PCP Patient Instructions Please follow up with cardiology when you return from vacation with Dr. Nayolr. Please follow up with your PCP in 1-2 weeks, or before you leave for vacation. Please limit your alcohol intake to 2 measured shots per day. Follow-up Provider: Ethan Hein MD Provider: Zuleika Naylor MD Follow-up in: 4 weeks Time spent Greater than 30 minutes was spent in preparation of discharge with greater than 50% of that time dedicated to patient counseling and coordination of care. . Attending Statement The patient was seen and examined together with Dr. Patiño on 11/22/2016 and I agree with the history, exam and plan as outlined in the note above. . copies to: Ethan Hein MD, Viktoriya DO Nov 23, 2016 15:53 Jeb Godwin MD Nov 27, 2016 16:11
== END 2016-11-22 14:58 | disposition home or self-care (01) | DRG 897 ==
LOC: SED 23:15 → PCC 11-21 01:20
PROVIDERS: ADMIT Internal Medicine; ATTEND Internal Medicine
DX: F10.229 Alcohol dependence with intoxication, unspecified (principal); T51.0X1A Toxic effect of ethanol, accidental (unintentional), initial encounter; Y90.8 Blood alcohol level of 240 mg/100 ml or more; R55 Syncope and collapse; Z79.82 Long term (current) use of aspirin; Z98.61 Coronary angioplasty status; Z87.891 Personal history of nicotine dependence; E11.9 Type 2 diabetes mellitus without complications; I10 Essential (primary) hypertension; I25.2 Old myocardial infarction; K21.9 Gastro-esophageal reflux disease without esophagitis; R74.8 Abnormal levels of other serum enzymes; Z79.84 Long term (current) use of oral hypoglycemic drugs